=== PATIENT | female | born 1975 | race Caucasian/White ===

== ENCOUNTER 2024-03-11 13:18 | Outpatient (CLI) | payer OTHER | END 2024-03-11 13:19 | disposition home or self-care (01) | LOC: SCSMRI 13:18 | DX: D73.89 Other diseases of spleen (principal); K76.89 Other specified diseases of liver; Z98.890 Other specified postprocedural states | CPT/HCPCS: 70250; 74183 ==

== ENCOUNTER → 2024-03-18 | Day surgery (SDC) | payer OTHER | LOC: ONC/OP 09:00 | PROVIDERS: ATTEND Internal Medicine Hematology & Oncology | DX: O99.019 Anemia complicating pregnancy, unspecified trimester (principal); D50.0 Iron deficiency anemia secondary to blood loss (chronic); Z3A.00 Weeks of gestation of pregnancy not specified | CPT/HCPCS: 96365; 96366; 96375 ==